=== PATIENT | male | born 1955 | race Caucasian/White ===

== ENCOUNTER → 2019-03-14 10:23 | Outpatient (CLI) | payer MEDICARE, SELFPAY ==
[2019-03-14 12:34] LABS: Alanine Aminotransferase 12 U/L (12-78); Albumin Level 3.4 gm/dL (3.4-5.0); Alkaline Phosphatase 61 U/L (46-116); Aspartate Amino Transferase 9 U/L (15-37); Bilirubin,Direct 0.1 mg/dL (0.0-0.2); Bilirubin,Indirect 0.3 mg/dL (0.0-0.9); Bilirubin,Total 0.4 mg/dL (0.2-1.0); Chol/HDL Ratio 2.3 (1-3.5); Cholesterol 119 mg/dL (140-200); HDL Cholesterol 51 mg/dL (27-67); LDL Cholesterol 58 mg/dL (0-130); Total Protein,Serum 6.1 gm/dL (6.4-8.2); Triglycerides 52 mg/dL (30-200); VLDL Cholesterol 10 mg/dL (0-40)
== END ==
PROVIDERS: Visit Provider Urology
DX: E78.5 Hyperlipidemia, unspecified (principal); F17.200 Nicotine dependence, unspecified, uncomplicated; I11.9 Hypertensive heart disease without heart failure; I25.10 Atherosclerotic heart disease of native coronary artery without angina pectoris
CPT/HCPCS: 36415; 80061; 80076

== ENCOUNTER → 2019-09-12 10:53 | Outpatient (CLI) | payer MEDICARE, SELFPAY ==
--- NOTE | 2019-09-12 10:59 | CA_ITS ---
APPROVED REPORT EXAM: Comprehensive 2D, Doppler, and color-flow Echocardiogram Br[employer] Editor: Ruma Royal RDCS Ht: 6 ft 4 in Wt: 221lbs BSA: 2.31 BP: 124/70 mmHg Indications: DIZZINESS,SOA SMOKER,HTN,HLP,COPD 2D Dimensions LVOT 1.66 cm (M/F) 1.5-2.5 M-Mode Dimensions RVDd 3.46 cm (0.9-2.6) LVDd 5.59 cm (3.5-5.7) LVDs 4.47 cm (3.5-5.7) IVSd 0.56 cm (0.6-1.1) PWd 0.56 cm (0.6-1.1) EF (Teich) 40.50% FS 20.00% EDV (Teich) 153.00 mL ESV (Teich) 91.00 mL LV Diastology E/A Ratio 1.25 Mitral Valve MV A Velocity 54.00 (40-130 cm/s) Left Ventricle Left atrium is mildly enlarged, left ventricle is normal size, mild concentric left ventricular hypertrophy, visually estimated ejection fraction 55% with no regional wall motion abnormality, grade 1 diastolic dysfunction seen without tissue Doppler evidence of raise left atrial pressure. Right Ventricle Right atrium and right ventricle are mildly enlarged with normal contractility. Aortic Valve Aortic valve is minimally thickened and calcified leaflet chordae display good mobility, there is no aortic stenosis or aortic insufficiency. Mitral Valve Mitral valve is grossly normal, there is mild mitral regurgitation. Tricuspid Valve Tricuspid valve grossly normal, there is mild tricuspid regurgitation, tricuspid regurgitation jet velocity is inadequate for calculation of the right ventricular systolic pressure. Pulmonic Valve Pulmonic valve is poorly visualized. Great Vessels Aortic root is normal size. Pericardium No significant pericardial effusion noted. Conclusion 1. Mild biatrial enlargement, normal left ventricular size, mild concentric left ventricular hypertrophy, visually estimated ejection fraction 55% with no regional wall motion abnormality, grade 1 diastolic dysfunction seen without tissue Doppler evidence of raise left atrial pressure. 2. Mildly enlarged right ventricle with normal contractility. 3. Mild mitral and tricuspid regurgitation. 4. No significant pericardial effusion noted. Electronically signed by : Joey Rai, 09/13/2019 10:54:52
== END ==
PROVIDERS: PCP Nurse Practitioner Family; Visit Provider Physician Assistant
DX: R42 Dizziness and giddiness; R06.02 Shortness of breath; E78.49 Other hyperlipidemia; I11.9 Hypertensive heart disease without heart failure; F17.200 Nicotine dependence, unspecified, uncomplicated; I25.10 Atherosclerotic heart disease of native coronary artery without angina pectoris; J43.8 Other emphysema; G47.33 Obstructive sleep apnea (adult) (pediatric)
CPT/HCPCS: 93306

== ENCOUNTER → 2021-10-28 13:21 | Outpatient (CLI) | payer MEDICARE, SELFPAY ==
--- NOTE | 2021-10-28 13:25 | XR_ITS ---
FINAL REPORT CLINICAL HISTORY: weight loss/hoarseness FINDINGS: Two views of the chest were obtained. The heart size and pulmonary vascularity are within normal limits. The mediastinum is normal. The lungs are hyperinflated consistent with COPD. There is no pneumothorax. The bony thorax is intact. IMPRESSION: No acute cardiopulmonary process. Reviewed, Interpreted and Dictated by Alo Peña III, MD Transcribed by Cyn Cannon Authenticated and . [facility]
[2021-10-28 14:06] LABS: Basophils # 0.1 K/mm3 (0-0.2); Basophils % 0.8 % (0.1-2.0); Eosinophils # 0.4 K/mm3 (0.0-0.4); Eosinophils % 3.2 % (0.1-12.0); Hematocrit 47.7 % (42.0-52.0); Hemoglobin 14.1 g/dL (14.1-18.0); Lymphocytes # 4.7 K/mm3 (0.7-4.5); Lymphocytes % 39.6 % (10-50); Mean Corpuscular HGB Conc 29.6 g/dL (31.8-35.4); Mean Corpuscular Hemoglobin 31.1 pg (27.0-31.2); Monocytes # 0.5 K/mm3 (0.1-1.0); Monocytes % 4.6 % (1.7-9.3); Neutrophils # 6.1 K/mm3 (1.8-7.8); Neutrophils % 51.8 % (37.0-80.0); Platelet Count 243 K/mm3 (142-424); Red Blood Count 4.54 M/mm3 (4.60-6.20); Red Cell Distribution Width 13.9 % (11.5-17.5); White Blood Count 11.7 K/mm3 (4.8-10.8)
[2021-10-28 15:18] LABS: Alanine Aminotransferase 23 U/L (12-78); Albumin Level 3.9 g/dl (3.5-5.0); Alkaline Phosphatase 70 U/L (38-126); Anion Gap 7.7 mEq/L (5-15); Aspartate Amino Transferase 16 U/L (17-59); Blood Urea Nitrogen 14 mg/dl (9-20); Calcium 8.9 mg/dl (8.4-10.2); Carbon Dioxide 30 mmol/L (22.0-30.0); Chloride 98 mmol/L (98-107); Chol/HDL Ratio 2.4 (1-3.5); Cholesterol 132 mg/dl (140-200); Estimated Glomerular Filt Rate 114 ml/min (>60); GFR (African American) 137 ML/MIN (>60); Glucose 85 mg/dl (74-100); HDL Cholesterol 56 mg/dl (40-60); Magnesium 1.8 mg/dl (1.6-2.3); Potassium 4.7 mmoL/L (3.5-5.1); Sodium 131 mmol/L (136-145); Total Protein,Serum 6.2 g/dl (6.3-8.2); Triglycerides 90 mg/dl (30-150); VLDL Cholesterol 18 mg/dL (0-40)
[2021-10-28 15:34] LABS: Free T4 (Free Thyroxine) 0.77 ng/dl (0.78-2.19)
[2021-10-28 15:48] LABS: Thyroid Stimulating Hormone 4.74 uIU/mL (0.465-4.68)
[2021-10-28 16:46] LABS: Bilirubin,Total < 0.1 mg/dl (0.2-1.3)
[2021-10-28 17:32] LABS: Bilirubin,Indirect 0.1 mg/dL (0.0-0.9)
[2021-10-31 08:00] LABS: Direct LDL Cholesterol 56 mg/dL (100-129)
[2021-11-07 17:13] LABS: 1,25 Dihydroxy Vitamin D 32 pg/mL (.); 1,25-Dihydroxy, Vitamin D-2 <10 pg/mL (.); 1,25-Dihydroxy, Vitamin D-3 32 pg/mL (.)
== END ==
PROVIDERS: PCP Nurse Practitioner Family; Visit Provider Internal Medicine
DX: F43.9 Reaction to severe stress, unspecified (principal); R49.0 Dysphonia; R63.4 Abnormal weight loss; F17.200 Nicotine dependence, unspecified, uncomplicated; G47.33 Obstructive sleep apnea (adult) (pediatric); I11.9 Hypertensive heart disease without heart failure; R06.02 Shortness of breath; R42 Dizziness and giddiness; E78.49 Other hyperlipidemia
CPT/HCPCS: 36415; 71046; 80048; 80061; 80076; 82652; 83735; 84439; 84443; 85025

== ENCOUNTER → 2021-11-04 09:25 | Outpatient (CLI) | payer MEDICARE, SELFPAY ==
--- NOTE | 2021-11-04 09:27 | CA_ITS ---
APPROVED REPORT EXAM: Comprehensive 2D, Doppler, and color-flow Echocardiogram Logging Specialist: Holly Grace RVT Ht: 6 ft 4 in Wt: 218lbs BSA: 2.30 BP: 103/61 mmHg Indications: SOA,PHTN,DD,GRABIEL,HTN,SMOKER,HLD 2D Dimensions LVOT 2.54 cm (M/F) 1.5-2.5 LA Volume 51.30 mL LA Volume Index 22.30 mL/m2 (M/F) 16-34 M-Mode Dimensions RVDd 3.34 cm (0.9-2.6) LA Diam 3.07 cm (1.9-4.0) LVDd 4.06 cm (3.5-5.7) Ao Diam 3.27 cm (2.0-3.7) LVDs 2.66 cm (3.5-5.7) IVSd 0.60 cm (0.6-1.1) PWd 0.84 cm (0.6-1.1) EF (Teich) 64.10% FS 34.50% EDV (Teich) 72.50 mL TAPSE 3.41 (<1.7) ESV (Teich) 26.00 mL LV Diastology E Decel Time 293.00 (160-240 msec) E/A Ratio 1.2 MED E' 7.80 (< 7 cm/sec) E'/MED E' Ratio 10.56 (>14) LAT E' 9.20 (<10 cm/sec) E/LAT E' Ratio 8.96 (>14) Aortic Valve AO Peak GR. 5.20 mmHg Mitral Valve MV E Max Scot. 82.00 (40-130 cm/s) MV A Velocity 67.00 (40-130 cm/s) E/A Ratio 1.23 MV Decel. Time 293.00 (160-240 ms) MV PHT 86.00 ms Pulmonary Valve PV Peak Velocity 50.00 (50-150 cm/s) Tricuspid Valve TR P. Velocity 245.00 cm/s RAP Estimate 10.00 mmHg RVSP 33.90 mmHg Left Ventricle Left atrium is mildly enlarged, left ventricle is normal size mild concentric left ventricular hypertrophy, estimated ejection fraction 55% with no regional wall motion abnormality, grade 1 diastolic dysfunction seen without tissue Doppler evidence of raise left atrial pressure. Right Ventricle Right atrium and right ventricle are mildly enlarged with normal contractility. Aortic Valve Aortic valve is minimally thickened and fibrosed there is no aortic stenosis or aortic insufficiency. Mitral Valve Mitral valve grossly normal, there is trace mitral regurgitation Tricuspid Valve Tricuspid valve grossly normal, there is trace tricuspid regurgitation, tricuspid regurgitation jet velocity is inadequate for calculation of the right ventricular systolic pressure. Pulmonic Valve Pulmonic valve is poorly visualized. Great Vessels Aortic root is normal size. Inferior vena cava is poorly visualized. Pericardium No significant pericardial effusion noted. Conclusion 1. Mild biatrial enlargement, normal left ventricular size mild concentric left ventricular hypertrophy, estimated ejection fraction 55% with no regional wall motion abnormality, grade 1 diastolic dysfunction seen without tissue Doppler evidence of raise left atrial pressure. 2. Mildly enlarged right ventricle with normal contractility. 3. Trace mitral and tricuspid regurgitation. 4. No significant pericardial effusion. 5. Inferior vena cava is poorly visualized. Electronically signed by : Joey Rai MD 11/05/2021 06:50:34
--- NOTE | 2021-11-04 09:55 | CT_ITS ---
FINAL REPORT TECHNIQUE: Axial images through the chest were performed by computed tomography before and after the administration of IV contrast. This study was performed with techniques to keep radiation doses as low as reasonably achievable, (ALARA). Individualized dose reduction techniques using automated exposure control or adjustment of mA and/or kV according to the patient's size were employed. CLINICAL HISTORY: weight loss/hoarseness FINDINGS: There is no axillary adenopathy. There is no mediastinal adenopathy. There is right hilar adenopathy measuring 22 mm, nonspecific. The heart size is normal. There is no pericardial or pleural effusion. Limited images of the upper abdomen are unremarkable. On the lung window images there are moderate changes of emphysema with mild pulmonary scarring. There is a 19 mm well-circumscribed left upper lobe nodule which appears to have fat within it and most likely represents a pulmonary hamartoma. There are several calcified granulomas. There is a noncalcified nodule in the right lower lobe measuring 6 mm and a 6 mm left lower lobe nodule, both seen on image 57. There is a less than 5 mm right middle lobe nodule. Several other small nodules are seen in the bilateral lower lobes. IMPRESSION: Dominant left upper lobe nodule favoring a hamartoma. Other smaller bilateral lower lobe nodules, nonspecific. Recommend follow-up chest CT in 6 months. Reviewed, Interpreted and Dictated by Alo Peña III, MD Transcribed by Cyn Cannon Authenticated and [facility]
== END ==
PROVIDERS: PCP Nurse Practitioner Family; Visit Provider Physician Assistant
DX: F17.200 Nicotine dependence, unspecified, uncomplicated; F43.9 Reaction to severe stress, unspecified; G47.33 Obstructive sleep apnea (adult) (pediatric); I11.9 Hypertensive heart disease without heart failure; R06.02 Shortness of breath; R42 Dizziness and giddiness; R49.0 Dysphonia; R63.4 Abnormal weight loss; E78.49 Other hyperlipidemia; I20.8 Other forms of angina pectoris
CPT/HCPCS: 71270; 93306; Q9967